=== PATIENT | female | born 1985 | race African-American/Black ===

== ENCOUNTER 2024-01-07 22:01 | Emergency (ER) | payer OTHER ==
[2024-01-07 22:12] VITALS: BP 140/96
[2024-01-07 22:34] LABS: BILIRUBIN,URINE NEGATIVE (NEGATIVE); GLUCOSE, URINE (UA) NEGATIVE (NEGATIVE); KETONES,URINE (UA) NEGATIVE (NEGATIVE); LEUKOCYTE ESTERASE, URINE NEGATIVE (NEGATIVE); NITRITE,URINE NEGATIVE (NEGATIVE); OCCULT BLOOD,URINE NEGATIVE (NEGATIVE); PROTEIN,URINE NEGATIVE (NEGATIVE); UROBILINOGEN,URINE 1 (NORMAL) E.U./dL (NORMAL)
[2024-01-07 22:41] LABS: BASOPHILS % (AUTO) 0.2 %; EOSINOPHILS % (AUTO) 0.2 %; HCT - HEMATOCRIT 40.1 % (37.0-47.0); HGB - HEMOGLOBIN 13.7 g/dL (12.0-16.0); LYMPHOCYTES % (AUTO) 17.5 %; MEAN CORPUSCULAR HEMOGLOBIN 30.8 pg (27.0-31.0); MEAN CORPUSCULAR HGB CONC 34.2 g/dL (32.0-36.0); MEAN CORPUSCULAR VOLUME 90.1 fL (81.0-99.0); MEAN PLATELET VOLUME 10.3 fL (7.9-10.8); MONOCYTES % (AUTO) 5.3 %; NEUTROPHILS % (AUTO) 76.4 %; PLT - PLATELET COUNT 327 10^3/uL (130-450); RED BLOOD COUNT 4.45 10^6/uL (4.20-5.40); RED CELL DISTRIBUTION WIDTH 13.3 % (12.0-15.0); WHITE BLOOD COUNT 8.5 x10^3/uL (4.8-10.8)
[2024-01-07 22:42] LABS: ABNORMAL LYMPHS % (MANUAL) 0 %; BAND NEUTROPHILS % (MANUAL) 0 %; CLARITY,URINE CLEAR (CLEAR)
[2024-01-07 22:43] LABS: HCG UR QUAL NEGATIVE
[2024-01-07 22:53] LABS: ALBUMIN 4.3 g/dL (3.2-5.5); ALBUMIN/GLOBULIN RATIO 1.4 (1.0-2.2); BILIRUBIN,TOTAL 0.9 mg/dL (0.2-1.0); CALCIUM 10.1 mg/dL (8.5-10.3); CREATININE 0.9 mg/dL (0.6-1.3); POTASSIUM 3.8 mmol/L (3.5-4.5); TOTAL PROTEIN 7.4 g/dL (6.4-8.9)
[2024-01-07 22:59] LABS: LYMPHOCYTES # (MANUAL) 1.4 10^3/uL (1.5-3.5); LYMPHOCYTES % (MANUAL) 8 %; MONOCYTES # (MANUAL) 0.9 10^3/uL (0.0-1.0); NEUTROPHILS # (MANUAL) 6.2 10^3/uL (1.5-6.6); REACTIVE LYMPHS % (MANUAL) 9 %
[2024-01-07 23:00] LABS: DIFFERENTIAL COMMENT MANUAL DIFFERENTIAL; PLATELET ESTIMATE, MANUAL NORMAL (130-450,000) (NORMAL); PLATELET MORPHOLOGY NORMAL APPEARANCE (NORMAL); RBC MORPHOLOGY (MULTIPLE) NORMAL APPEARANCE (NORMAL)
--- NOTE | 2024-01-07 23:02 | ED Physician Documentation ---
PD HPI ABD PAIN - Stated complaint Stated Complaint: ABD PX, N/V - Chief complaint Chief Complaint: Abd Pain - History obtained from History obtained from: Patient - History of Present Illness Timing - onset: Enter time (1600), Today Timing - duration: Hours Timing - details: Abrupt onset, Still present Quality: Sharp, Pain Location: RUQ Radiation: Chest Improved by: Laying still Worsened by: Moving, Breathing, Position, Palpation Associated symptoms: Nausea. No: Vomiting Similar symptoms before: Has not had sx before Recently seen: Not recently seen - Additional information Additional information: Previously well 38-year-old F any notable has developed acute epigastric pain. She has some nausea she has not vomited she has severe pain she has not had this pain previously.She last remembers eatingAbout 3 PM and the pain started at 4 PM. She has pain worse if she takes a deep breath. She denies any white or acholic stool Review of Systems Constitutional: denies: Fever Ears: denies: Ear pain Nose: denies: Congestion Throat: denies: Sore throat Cardiac: denies: Chest pain / pressure Respiratory: denies: Dyspnea, Cough, Wheezing GI: reports: Nausea, Vomiting. denies: Abdominal Pain, Constipation, Diarrhea : denies: Dysuria, Frequency Skin: denies: Rash Musculoskeletal: denies: Neck pain, Back pain, Extremity pain PD PAST MEDICAL HISTORY - Past Medical History Past Medical History: Yes Psych: Depression, Anxiety - Past Surgical History Past Surgical History: No - Present Medications Home Medications: Ambulatory Orders Medication Instructions Recorded Confirmed Carboxymethylcellulose Sodium 1 drops EACHEYE BID 01/07/24 01/07/24 [Refresh Plus] Cholecalciferol (Vitamin D3) 1,250 mcg PO DAILY 01/07/24 01/07/24 [Vitamin D3] Fluoxetine HCl [Prozac] 20 mg PO DAILY 01/07/24 01/07/24 Phentermine HCl 0.5 tab PO DAILY 01/07/24 01/07/24 buPROPion HCL [Bupropion Xl] 150 mg PO DAILY 01/07/24 01/07/24 - Allergies Allergies/Adverse Reactions: Allergies Allergy/AdvReac Type Severity Reaction Status Date / Time No Known Drug Allergies Allergy Verified 01/07/24 22:05 - Social History Does the pt smoke?: No Smoking Status: Never smoker Does the pt drink ETOH?: No Does the pt have substance abuse?: No - Immunizations Immunizations are current?: Yes - POLST Patient has POLST: No PD ED PE NORMAL - Vitals Vital signs reviewed: Yes (Hypertensive) - General General: Alert and oriented X 3, Well developed/nourished, Other ([employer] tone and flattened affect consistent with significant pain the patient is periodically morning as well.) - HEENT HEENT: Atraumatic, PERRL, EOMI - Neck Neck: Supple, no meningeal sign, No bony TTP - Cardiac Cardiac: RRR, No murmur - Respiratory Respiratory: No respiratory distress, Clear bilaterally - Abdomen Abdomen: Normal bowel sounds, Soft, Non distended, No organomegaly, Other (Pain specifically to the right upper quadrant with a positive Reynoso sign. 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, No motor deficit, No sensory deficit, Normal speech Eye Opening: Spontaneous Motor: Obeys Commands Verbal: Oriented GCS Score: 15 - Psych Psych: Normal mood Results - Vitals Vitals: Vital Signs - 24 hr 01/07/24 01/08/24 22:05 00:43 Temperature 36.8 C Heart Rate 87 82 Respiratory 16 16 Rate Blood Pressure 140/96 H O2 Saturation 99 100 Oxygen O2 Source Room air - Labs Labs: Laboratory Tests 01/07/24 01/07/24 01/07/24 22:30 22:30 22:30 WBC 8.5 RBC 4.45 Hgb 13.7 Hct 40.1 MCV 90.1 MCH 30.8 MCHC 34.2 RDW 13.3 Plt Count 327 MPV 10.3 Neut # (Auto) Not Reportable Lymph # (Auto) Not Reportable Erath # (Auto) Not Reportable Eos # (Auto) Not Reportable Baso # (Auto) Not Reportable Absolute Nucleated RBC Not Reportable Total Counted 100 Band Neuts % (Manual) 0 Reactive Lymphs % (Man) 9 Abnorm Lymph % (Manual) 0 Nucleated RBC % Not Reportable Neutrophils # (Manual) 6.2 Lymphocytes # (Manual) 1.4 L Monocytes # (Manual) 0.9 Eosinophils # (Manual) 0.0 Basophils # (Manual) 0.0 Differential Comment MANUAL DIFFERENTIAL Platelet Estimate NORMAL (130-450,000) Platelet Morphology NORMAL APPEARANCE RBC Morph Micro Appear NORMAL APPEARANCE Sodium 134 L Potassium 3.8 Chloride 103 Carbon Dioxide 21 Anion Gap 10.0 BUN 17 Creatinine 0.9 Estimated GFR (MDRD) 85 L Glucose 107 H Calcium 10.1 Total Bilirubin 0.9 AST 561 H ALT 253 H Alkaline Phosphatase 91 Total Protein 7.4 Albumin 4.3 Globulin 3.1 Albumin/Globulin Ratio 1.4 Lipase 58 Urine Color YELLOW Urine Clarity CLEAR Urine pH 7.0 Ur Specific [place] 1.025 Urine Protein NEGATIVE Urine Glucose (UA) NEGATIVE Urine Ketones NEGATIVE Urine Occult Blood NEGATIVE Urine Nitrite NEGATIVE Urine Bilirubin NEGATIVE Urine Urobilinogen 1 (NORMAL) Ur Leukocyte Esterase NEGATIVE Ur Microscopic Review NOT INDICATED Urine Culture Comments NOT INDICATED Urine HCG, Qual NEGATIVE Procedures - Bedside sono Bedside sono by EMP: With use of POCUS the gallbladder is imaged there are no obvious stones the gallbladder is enlarged and there is no margaret pericholecystic fluid or gallbladder wall thickening there is specific tenderness to the gallbladder sonographically. I believe I have measured the common bile duct at 4.7 mm. PD Medical Decision Making - ED course Complexity details: reviewed results, re-evaluated patient, considered differential, d/w patient Reviewed Lab Results: We reviewed a complete blood count showing a normal white blood cell count normal hemoglobin hematocrit and platelets chemistries showed normal electrolytes normal kidney function her liver functions were markedly elevated with AST of 561 and ALT of 253 her bilirubin was normal at 0.9. This young female has a history of alcohol abuse and I suspect the AST and ALT are a result of alcohol use. The bilirubin being normal is reassuring that there is not a common duct stone. A urinalysis shows negative for and otherwise negative with a specific gravity of 1.025. A normal white blood cell count is reassuring for ruling out Cholecystitis as well as any other overwhelming infection. ED course: 38 y/o Lizzette Danielle presents with epigastric pain she has right upper quadrant tenderness on examination and a positive Reynoso sign without obvious stones in the gallbladder on POCUS. I was able to measure the common bile duct which was normal in diameter and the biochemical profile does not support a diagnosis of common duct stone. The patient is administered saline and Toradol with resolution of her pain. I have considered this a "gallbladder attack" and I have asked her to obtain a formal ultrasound as we did not have an wireless field technician at the time she arrived to the emergency department. Departure - Departure Disposition: 01 Home, Self Care Clinical Impression: Gall bladder pain Condition: Stable Instructions: ED Abdominal Pain Gallstone Poss Follow-Up: LUIS Ma [Provider Group] Comments: Lizzette, today it looks like you had a gallbladder attack and on our bedside ultrasound today we were not able to identify stones specifically. We were able to tell that you did not have a common bile duct stone and did not appear to have cholecystitis. It appears you have responded to treatment and my recommendation is to eat a low-fat diet until follow-up and a follow-up formal ultrasound image should be obtained. Follow-up with your primary care doctor for an order. Discharge Date/Time: 01/08/24 00:44
[2024-01-07] MEDS: SODIUM CHLORIDE 0.9% 1,000 ML IV STA (23:13)
[2024-01-07] MEDS: ONDANSETRON 4 MG/2 ML VIAL IVP STA (23:13)
[2024-01-07] MEDS: KETOROLAC 30 MG/ML VIAL IVP STA (23:16)
[2024-01-08 00:52] VITALS: O2SAT 100
== END 2024-01-08 00:44 | disposition home or self-care (01) ==
LOC: ED 22:01
DX: K82.9 Disease of gallbladder, unspecified (principal)
CPT/HCPCS: 36415; 80053; 81001; 81003; 81025; 83690; 85025; 87086; 96374; 96375; 99283

== ENCOUNTER 2024-02-16 13:16 | Outpatient (CLI) | payer OTHER ==
--- NOTE | 2024-02-16 14:23 | Sleep Patient Instructions ---
Sleep Center Visit Summary - Patient Visit Information Reason for Visit: Initial consult for evaluation of sleep disordered breathing and other sleep issues. - Patient Instructions Instructions Attached: Sleep Study Home Monitor Additional Instructions: You will be completing a sleep study, either an in-lab polysomnography (PSG) or home sleep study (HST). You will follow-up in the sleep care office after the sleep study is completed to hear the results and talk about therapy, if needed. You will be called by our office staff to schedule this appointment, but you may contact us with any questions. - Clinic Information Contact: [facility] [address] [place] [address] [email or web address] T: [phone]
--- NOTE | 2024-02-16 14:26 | SLEEP CARE CONSULTATION ---
Information from patient questionnaire entered by Nathaniel Lazar. I have reviewed and concur with the information entered by Nathaniel Lazar. This document represents the service I personally performed and the decisions made by me, Amanda Osuna ARNP. History of Present Illness Service Date and Time: 02/16/2024 1316 Reason for Visit: New patient Chief Complaint: reports: Snoring, Observed pauses in breathing, Fatigue, Frequent awakenings at night Date of Onset: 1YR Usual bedtime: 2200, lays does before to try to be asleep by 10 pm Time it takes to fall asleep: 15MINS Snores at night: Yes Observed to quit breathing while asleep: Yes Sleeps alone due to snoring: No Number of times waking at night: 2-3 Reasons for waking at night: reports: Choking, Gasping for air, Bathroom Toss, Turn, or Twitch while sleeping: Yes Recalls having dreams: Yes Usually gets out of bed at: 0430; weekends sleeps in to 10 AM and sometimes will not get out of bed Feels refreshed in the morning: No Morning headache: Yes Sleepy or fatigued during the day: Yes Ever fallen asleep while driving: No Takes day naps: No Dreams during day naps: Yes Prior sleep studies: No Additional HPI information: I had the pleasure of seeing LINDEN FRANCIS today regarding the possibility of her having a sleep disorder. Her current complaints are fatigue, frequent night awakenings, observed pauses in breathing and snoring. She says she started waking up with headaches over the last 3-4 months. She says 3-4 days a week she will wake up with a headache. It will go away after she gets busy during the morning. She says has woke up gasping for air and believes she is stopping breathing. She says she wakes up frequently at night and did go through a time when she would wake up at 0130 in the morning and could not go back to sleep. She can go back to sleep now. She does not feel refreshed when she gets up in the morning. She will get up 2 hours before work because she moves slowly in the morning to be ready to go to work. - Parasomnia Symptoms Ever been unable to move upon waking from sleep: No Walks in sleep: No Talks in sleep: Yes (will wake herself up talking) Ever acted out dreams in sleep: No Ever felt weak in the knees when startled or emotional: No Bothered by creepy, crawly, restless sensations in legs: No Problems with memory or concentration: Yes (both) Subjective Initial [place] Sleepiness Scale score: 11 (02/16/24) Past Medical History Past Medical History: reports: Anxiety, Depression, Other (2018 shoulder surgery; gallbladder removed Dec 2023) Social History The patient's occupation is a [employer]. Patient is Single and lives in . Have you smoked in the past 12 months: No Alcohol use: Yes Alcohol amount and frequency: 2-3 DRINKS WEEKEND Caffeine use: Yes Caffeine amount and frequency: 1 CUP OF COFFEE WEEKDAYS Family History Family history of sleep disordered breathing: Yes Family Hx Sleep Apnea: Father: Snoring, Grandparent: Snoring Allergies and Home Medications Known drug allergies: No Drug allergies reviewed: Yes Home medication list reviewed: Yes (as listed) Allergy and home medication list: Allergies No Known Drug Allergies Allergy (Verified 02/14/24 11:20) Home Medications Medication Instructions Recorded Confirmed Last Taken Type Cholecalciferol (Vitamin D3) 1,250 mcg PO DAILY 01/07/24 02/16/24 Unknown History [Vitamin D3] Fluoxetine HCl [Prozac] 20 mg PO DAILY 01/07/24 02/16/24 Unknown History buPROPion HCL [Bupropion Xl] 150 mg PO DAILY 01/07/24 02/16/24 Unknown History Cholestyramine [Questran] See Rx Instructions .ROUTE .COMPLEX 02/16/24 02/16/24 Unknown History Review of Systems Weight gain over past 5 years: 20 Cardiovascular: denies: high blood pressure Gastrointestinal: denies: heartburn Neurological: reports: headaches Psychiatric: reports: anxiety, depression Ear/Nose/Throat: reports: wisdom teeth removed. denies: tonsillectomy Endocrine: denies: thyroid disease Physical Exam Vital signs obtained and entered by: NATHANIEL Spear MA Blood Pressure: 145/101 (RIGHT ARM) Cuff size: long Heart Rate: 93 O2 Saturation: 98 Height: 5 ft 6 in Weight: 214 lb 12.8 oz Body Mass Index: 34.7 BMI Classification: Obese Neck circumference: 15.5 Nostrils: patent to airflow Mouth and throat: narrow oropharynx Soft palate: long Hard palate: Torus palatinus (minimal) Uvula: normal Uvula visualization: 25% Mallampati Class III Tongue: enlarged in size with teeth velasquez on lateral edges Tonsils: small Neck: normal w/o lymphadenopathy or thyromegaly Heart: regular rate and rhythm Lungs: clear bilaterally Impression and Plan 1. Suspected Obstructive Sleep Apnea-Hypopnea Syndrome, as suggested by a history of loud and irregular snoring, observed cessation of breath while asleep, gasping or choking in sleep, morning headache, frequent awakening during the night, unrefreshed sleep, cognitive impairment, and excessive daytime sleepiness. Narrow oropharynx and obesity are common predisposing factors for obstructive sleep apnea-hypopnea syndrome. I recommend proceeding to polysomnography to confirm the diagnosis and to assess severity. If the patient has significant sleep disordered breathing, a manual CPAP titration study will also be performed to find the optimal treatment pressure. I informed the patient of what the sleep studies involve and after some discussion, obtained agreement to proceed. The pathophysiology of obstructive sleep apnea-hypopnea syndrome was discussed with the patient and health risks of cardiovascular and cerebrovascular disease if not treated. Risks of drowsy driving discussed in detail and patient advised to avoid long distance driving and to harness puller at the first sign of drowsiness. Patient agreed to plan. * Schedule polysomnography. * Avoid long distance driving or driving when feeling sleepy. * Avoid alcohol, sedative and muscle relaxant around bedtime. * Attempt to lose weight. * Review instructions provided by trained office staff on how to prepare for the sleep study. * Return for follow-up after sleep study completed. Counseling Topics: Weight loss health impact Follow up with Sleep Care in: other (to review sleep study results) Plan: PSG/HST Visit Type: In Office Time Spent with Patient (minutes): 30 Provider Statement: I spent 100% of the Face to Face Visit with the patient with greater than 50% spent counseling the patient and coordination of care.
[2024-02-16 14:29] VITALS: BP 145/101; O2SAT 98
== END 2024-02-16 13:17 | disposition home or self-care (01) ==
LOC: SC 13:16
PROVIDERS: ATTEND Nurse Practitioner Family
DX: R06.83 Snoring (principal); R06.81 Apnea, not elsewhere classified; R51.9 Headache, unspecified; G47.8 Other sleep disorders; R41.89 Other symptoms and signs involving cognitive functions and awareness; G47.10 Hypersomnia, unspecified; E66.9 Obesity, unspecified; Z68.34 Body mass index [BMI] 34.0-34.9, adult
CPT/HCPCS: 99203; 99212

== ENCOUNTER 2024-04-16 13:41 | Outpatient (CLI) | payer OTHER | END 2024-04-16 13:42 | disposition home or self-care (01) | LOC: SC 13:41 | PROVIDERS: ATTEND Nurse Practitioner Family | DX: R06.83 Snoring (principal); G47.8 Other sleep disorders; R06.81 Apnea, not elsewhere classified; R51.9 Headache, unspecified; G47.10 Hypersomnia, unspecified; R53.83 Other fatigue; F32.A Depression, unspecified; E66.9 Obesity, unspecified; Z68.34 Body mass index [BMI] 34.0-34.9, adult | CPT/HCPCS: 95806 ==

== ENCOUNTER 2024-05-15 14:02 | Outpatient (CLI) | payer OTHER ==
--- NOTE | 2024-05-15 14:17 | Sleep Patient Instructions ---
Sleep Center Visit Summary - Patient Visit Information Reason for Visit: Sleep study follow-up - Patient Instructions Instructions Attached: Snoring Tips Prevent Additional Instructions: Your sleep study today was negative for significant sleep disordered breathing. However, you did have elevated respiratory episodes when sleeping on your back. You should avoid sleeping on your back to control these respiratory episodes. You were found to have episodes of snoring. There are different ways to control snoring including weight loss, oral devices made by a dentist or surgical options through ENT specialist. You should not use oral devices that do not fit properly because they can affect your bite. You should also check insurance coverage of oral devices for snoring because they may not be cover well. You may obtain a referral to an ENT specialist through your primary provider. Follow-up as needed. - Clinic Information Contact: [facility] [address] [place] [address] [email or web address] T: [phone]
--- NOTE | 2024-05-15 14:19 | SLEEP CARE CONSULTATION ---
Information from patient questionnaire entered by Kathrin Lazar. I have reviewed and concur with the information entered by Kathrin Lazar. This document represents the service I personally performed and the decisions made by , Amanda Osuna ARNP. History of Present Illness Service Date and Time: 05/15/2024 1402 Initial [place] Sleepiness Scale score: 11 (02/16/24) Current [place] Sleepiness Scale score: 11 (05/15/24) Additional HPI information: LINDEN FRANCIS returns for follow up and results of the recently performed home sleep study. The patient was informed of the following findings: No significant sleep disordered breathing with an average AHI of 3.9 and enzo oxygen saturation of 90%. Her supine AHI was elevated at 9.2. I explained the pathophysiology behind obstructive sleep apnea. Patient does not have sleep apnea and was advised how weight gain could increase the risk of developing sleep apnea in the future. I strongly encouraged the patient to lose weight. Patient does not have significant sleep disordered breathing but has elevated AHI in supine position so advised positional therapy. Methods to achieve positional management therapy were discussed; such as, positioning with pillows, wearing a T-shirt with tennis balls sewn into the back or commercially available products. Patient has moderate snoring. Snoring can be reduced by weight loss. Weight loss is best achieved with diet consult. Patient instructed to contact PCP for referral. Snoring can also be treated with an oral appliance from a dentist. Advised to check insurance coverage. In addition, an ENT evaluation can be do to see if other treatment is indicated. Patient counseled not drink alcohol less than 4 hours before bedtime as it can increase snoring and apnea. Patient was cautioned about risks of drowsy driving until sleepiness symptoms resolve. Patient denies drowsy driving. Sleep Study - Results Type of Sleep Study: Home sleep study (COMPLETD 04/16/24) Prior sleep studies: No Polysomnography/Home Sleep Study results: Physician Impression: The quality of the study is good. The length of the study is adequate (> 240 minutes). Please also see the tabulated and graphic data. 1. No significant sleep disordered breathing, with an AHI of 3.9/hr and enzo SaO2 of 90%. During the study, the patient had 17 apneas (17 obstructive, 0 central, 0 mixed) and 14 hypopneas. The longest episode lasted 52.0 seconds. The few respiratory events occurred almost exclusively during supine sleep (supine AHI was 9.2 and non-supine, 2.65). Recommendation: ? No treatment is necessary. However, because the supine AHI was elevated at 9.2, the patient should avoid sleeping supine. Clinical correlation advised. Allergies and Home Medications Known drug allergies: No Drug allergies reviewed: Yes Home medication list reviewed: Yes (no changes) Allergy and home medication list: Allergies No Known Drug Allergies Allergy (Verified 05/13/24 11:24) Review of Systems Review of systems same as previous: Yes (NO CHANGE) Physical Exam Vital signs obtained and entered by: JANET ARMSTRONG Blood Pressure: 143/92 (RIGHT ARM) Cuff size: long Heart Rate: 105 O2 Saturation: 98 Height: 5 ft 6 in Weight: 214 lb 3.2 oz Body Mass Index: 34.5 BMI Classification: Obese Impression and Plan 1. Snoring but no significant sleep disordered breathing. However, patient has elevated supine AHI and was advised to avoid sleeping supine. Patient advised that often weight loss will reduce snoring as well as apnea risk. An oral appliance can also be used for snoring. This would require a dental consultation. Patient cautioned not to use other online appliances as can cause bite issues. Patient is advised to check if insurance will cover. An ENT consult can also be helpful to determine if any other treatment is an option. 2. Obesity, unspecified. Currently patients BMI is 34.5. Obesity increases the risk of apnea, CPAP pressure requirements and overall health risks especially cardiovascular and diabetes. Thus patient is advised to lose weight. * Avoid sleeping supine * Attempt to lose weight * Avoid alcohol consumption near bedtime * The patient is cautioned about driving until sleepiness is completely resolved. * Return as needed for follow up. Counseling Topics: Sleeping position, Weight loss health impact Follow up with Sleep Care in: as needed Visit Type: In Office Time Spent with Patient (minutes): 12 Provider Statement: I spent 100% of the Face to Face Visit with the patient with greater than 50% spent counseling the patient and coordination of care.
[2024-05-15 14:28] VITALS: BP 143/92; O2SAT 98
== END 2024-05-15 14:03 | disposition home or self-care (01) ==
LOC: SC 14:02
PROVIDERS: ATTEND Nurse Practitioner Family
DX: R06.83 Snoring (principal); E66.9 Obesity, unspecified; Z68.34 Body mass index [BMI] 34.0-34.9, adult
CPT/HCPCS: 99212